=== PATIENT | female | born 1990 | race American Indian/Alaskan Native ===

== ENCOUNTER 2017-01-02 11:47 | Outpatient (CLI) | payer OTHER ==
[2017-01-02 12:48] LABS: Bilirubin,Urine NEG (Negative); Blood,Urine NEG (Negative); Ketones,Urine 80 mg/dL (Negative); Leukocyte Esterase,Urine MOD (Negative); Mucus,Urine 3+ /HPF; Nitrite,Urine NEG (Negative)
[2017-01-02 14:24] VITALS: BP 101/57
[2017-01-02] MEDS ORDERED: LACTATED RINGERS 1,000 ML IV ONE (14:30)
== END 2017-01-02 14:30 | disposition home or self-care (01) ==
LOC: TRG 11:47
PROVIDERS: ATTEND Obstetrics & Gynecology
DX: O47.03 False labor before 37 completed weeks of gestation, third trimester (principal); Z3A.36 36 weeks gestation of pregnancy
CPT/HCPCS: 59025; 81001; 96360; J7120

== ENCOUNTER 2017-02-01 13:03 | Inpatient (IN) | payer OTHER ==
[2017-02-01] MEDS ORDERED: XYLOCAINE 2% INFILTRATI ONE (13:08)
[2017-02-01] MEDS ORDERED: SUBLIMAZE IV PRN (13:08)
[2017-02-01] MEDS ORDERED: BRETHINE SUB-Q PRN (13:08)
[2017-02-01] MEDS ORDERED: MINERAL OIL PO PRN (13:08)
[2017-02-01] MEDS ORDERED: ZOFRAN IV PRN (13:08)
[2017-02-01] MEDS ORDERED: ePHEDrine SULFATE IV PRN ×2 (13:08→18:29)
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
[2017-02-01] MEDS ORDERED: PITOCin/NS 30 UNIT/500ML 30 UNITS/500 ML BAG IV SCH (14:00)
[2017-02-01] MEDS ORDERED: LACTATED RINGERS 1,000 ML IV SCH (14:00)
[2017-02-01] MEDS ORDERED: PITOCin/NS 20 UNIT/1000ML DRIP 20 UNITS/1,000 ML BAG IV SCH ×2 (14:00→23:55)
[2017-02-01 14:57] LABS: Hematocrit 34.2 % (30.3-42.9); Hemoglobin 11.3 gm/dl (10.1-14.3); Mean Corpuscular HGB Conc 33 % (30-34); Mean Corpuscular Hemoglobin 27 pg (28-32); Mean Corpuscular Volume 83 fl (79-97); Platelet Count 138 K/mm3 (140-440); Red Blood Count 4.13 M/mm3 (3.65-5.03); Red Cell Distribution Width 14.3 % (13.2-15.2); White Blood Count 7.8 K/mm3 (4.5-11.0)
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
[2017-02-01] MEDS ORDERED: ePHEDrine SULFATE ONE (18:02)
[2017-02-01] MEDS ORDERED: NARCAN 2 MG/2 ML IV PRN (18:29)
--- NOTE | 2017-02-01 18:29 | Anesthesia Consultation ---
Anesthesia Consult and Med Hx Date of service: 02/01/17 - Airway Anesthetic Teeth Evaluation: Good ROM Head & Neck: Adequate Mental/Hyoid Distance: Adequate Mallampati Class: Class II Intubation Access Assessment: Good - Pulmonary Exam CTA: Yes - Cardiac Exam Cardiac Exam: No Murmur - Pre-Operative Health Status ASA Pre-Surgery Classification: ASA2 Proposed Anesthetic Plan: Epidural - Pulmonary Hx Asthma: No COPD: No Hx Pneumonia: No - Cardiovascular System Hx Hypertension: Yes (PIH history) - Central Nervous System Hx Seizures: Yes Hx Psychiatric Problems: No - Endocrine Hx Renal Disease: No Hx End Stage Renal Disease: No Hx Hypothyroidism: No Hx Hyperthyroidism: No - Hematic Hx Anemia: No Hx Sickle Cell Disease: No - Other Systems Hx Alcohol Use: No
[2017-02-01] MEDS ORDERED: fentaNYL-BUPIV 2 MCG/ML-0.125% 200 MCG/100 ML BAG EPIDURAL SCH (19:00)
--- NOTE | 2017-02-01 20:59 | Procedure Note ---
OB Delivery Note - Delivery Date of Delivery: 02/01/17 Storage Center Manager: ILIANA VICENTE Estimated blood loss: 300cc - Vaginal Delivery presentation: vertex Delivery position: OA Intrapartum events: shoulder dystocia (30 seconds - resolved with jan and superpubic by Lisa Das RN), other(please specify) (IOL for BPP 4/10 with arrhythmia ) Delivery induction: oxytocin Delivery augmentation: rupture of membranes Delivery monitor: external FHT, internal uterine Route of delivery: Delivery placenta: spontaneous Delivery cord: 3 umbilical vessels Episiotomy: none Delivery laceration: none Anesthesia: epidural Delivery comments: male over intact perineum. head del DEYVI, 30 second shoulder dystocia resolved with jan and suprapubic pressure by RN. handed off for assessment by NICU/TOOL AND DIE MANAGER. (Left shoulder anterior; both arms moving well after delivery). Placenta del intact and complete, sent to pathology. Pit to IVF. no laceration to repair. EBL 300, infant's weight 8#4oz, apgars 8/9. Both mother and LDR stable. - Infant A at 1 minute: 8 at 5 minutes: 9 Gender: Male (8#4oz)
[2017-02-01] MEDS: KEPPRA PO SCH (22:01)
[2017-02-01] MEDS ORDERED: PHENERGAN PO PRN (23:55)
[2017-02-01] MEDS ORDERED: DERMOPLAST TP PRN (23:55)
[2017-02-01] MEDS ORDERED: TYLENOL PO PRN (23:55)
[2017-02-01] MEDS ORDERED: SODIUM CHLORIDE FLUSH SYRINGE 10 ML IV PRN (23:55)
[2017-02-01] MEDS ORDERED: DULCOLAX PR PRN (23:55)
[2017-02-01] MEDS ORDERED: LANSINOH TP PRN (23:55)
[2017-02-01] MEDS ORDERED: TUCKS PAD TP PRN (23:55)
[2017-02-01] MEDS ORDERED: BENADRYL PO PRN (23:55)
[2017-02-01] MEDS ORDERED: MILK OF MAGNESIA PO PRN (23:55)
[2017-02-01] MEDS ORDERED: NORCO 5/325 PO PRN (23:55)
[2017-02-02] MEDS: MOTRIN PO SCH ×4 (00:18→17:14)
--- NOTE | 2017-02-02 09:52 | Progress Note ---
Subjective Date of service: 02/02/17 Principal diagnosis: IUP @ 39+1, nonreassuring fht, BPP 07/02 Interval history: Ms. Plaza is S/P with epidural analgesia. She has a PMH of hypertension , asthma. seizures and migraine headache. She awoke last PM with a left sided headache. The headache has lessened in intensity since then and does not seem to be positional. Anesthesia will see patient in AM and reevaluate. Objective - Constitutional Vitals: Vital Signs - 12hr 02/01/17 02/01/17 02/01/17 21:54 21:57 21:59 Temperature Pulse Rate 66 73 63 Respiratory Rate Blood Pressure 106/58 Blood Pressure [Left] O2 Sat by Pulse 99 99 Oximetry 02/01/17 02/01/17 02/01/17 22:04 22:09 22:12 Temperature Pulse Rate 70 76 73 Respiratory Rate Blood Pressure 112/53 Blood Pressure [Left] O2 Sat by Pulse 99 98 Oximetry 02/01/17 02/02/17 22:55 04:15 Temperature 97.9 F 98.4 F Pulse Rate 58 L 64 Respiratory 20 20 Rate Blood Pressure Blood Pressure 105/56 104/71 [Left] O2 Sat by Pulse Oximetry - Labs CBC & Chem 7: 02/01/17 14:45 Labs: Abnormal lab results 02/01/17 Range/Units 14:45 MCH 27 L (28-32) pg Plt Count 138 L (140-440) K/mm3
[2017-02-02] MEDS: PRENATAL VITAMIN PO SCH (10:10)
[2017-02-02] MEDS: KEPPRA PO SCH ×3 (10:10→22:01)
[2017-02-02] MEDS: COLACE PO SCH ×2 (10:10→21:58)
[2017-02-02 10:56] LABS: Hematocrit 33.4 % (30.3-42.9); Hemoglobin 11.1 gm/dl (10.1-14.3)
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
--- NOTE | 2017-02-02 11:20 | Discharge Summary ---
Providers - Providers Date of Admission: 02/01/17 13:10 Date of discharge: 02/02/17 (desires d/c home) Attending physician: MAAME CASH Primary care physician: MAAME CASH Hospitalization Reason for admission: induction of labor (bpp 07/02, nonreassuring status) Delivery: Episiotomy: none Laceration: none Other procedures: none complications: none Discharge diagnosis: IUP at term delivered baby: male Hospital course: uncomplicated vag delivery Condition at discharge: Good Disposition: DC-01 TO HOME OR SELFCARE - Discharge Diagnoses (1) Epilepsy Status: Acute Qualifiers: Epilepsy type: E Partial seizure type: P Intractability: I Status epilepticus: S (2) HTN (hypertension) Status: Acute Qualifiers: Hypertension type: essential hypertension Qualified Code(s): I10 - Essential (primary) hypertension (3) Asthma Status: Acute Qualifiers: Asthma severity: A Asthma persistence: A Asthma complication type: uncomplicated (4) Spontaneous vaginal delivery Status: Acute Plan - Discharge Medications Prescriptions: Ibuprofen [Motrin 800 MG tab] 800 mg PO Q8HR PRN #30 tablet PRN Reason: Pain Lidocain2.5%/Prilocai2.5% [Emla] 5 gm TP ONCE PRN #1 tube PRN Reason: Pain - Provider Discharge Summary Activity: routine, no sex for 6 weeks, no heavy lifting 4 weeks, no strenuous exercise Diet: routine Instructions: routine Additional instructions: [] Smoking cessation referral if applicable(refer to patient education folder for contact #) [] Refer to [facility] Booklet Call your doctor immediately for: * Fever > 100.5 * Heavy vaginal bleeding ( >1 pad per hour) * Severe persistent headache * Shortness of breath * Reddened, hot, painful area to leg or breast * Drainage or odor from incision. * Keep incision clean and dry at all times and follow doctor's instructions regarding bathing/showering - Follow up plan Follow up: MAAME CASH MD [Primary Care Provider] - 7 Days (Congratulation!! Please call [phone] to schedule your son's circumcision in 1 week and your visit in 4 weeks. Bring EMLA cream to your son's appointment and await instruction. Call for any questions or concerns. )
[2017-02-03] MEDS: MOTRIN PO SCH ×3 (00:16→12:01)
[2017-02-03] MEDS ORDERED: FIORICET PO PRN (04:25)
--- NOTE | 2017-02-03 04:27 | Event Note ---
Date: 02/03/17 per patient, she has a hx of migraine headaches. She is now c/o feeling "like a migraine is about to start". Crystal ordered.
[2017-02-03] MEDS ORDERED: BOOSTRIX IM ONE (06:00)
--- NOTE | 2017-02-03 06:43 | Event Note ---
Date: 02/03/17 patient states migraine has been relieved by fioricet. She request rx for discharge. no s/s seizure activity. All questions addressed, patient will call for appointment tomorrow. d/c home today as planned.
[2017-02-03 09:55] VITALS: BP 125/69
[2017-02-03] MEDS: COLACE PO SCH (09:58)
[2017-02-03] MEDS: PRENATAL VITAMIN PO SCH (09:58)
[2017-02-03] MEDS: KEPPRA PO SCH (09:59)
== END 2017-02-03 15:35 | disposition home or self-care (01) | DRG 775 ==
LOC: TRG 13:03 → LD 13:10 → TRG 13:10 → OB 22:42
PROVIDERS: ADMIT Obstetrics & Gynecology; ATTEND Obstetrics & Gynecology
PROC: 10E0XZZ Delivery of Products of Conception, External Approach (ICD-10-PCS; principal; 2017-02-01)
PROC: 3E0R3BZ Introduction of Anesthetic Agent into Spinal Canal, Percutaneous Approach (ICD-10-PCS; 2017-02-01)
PROC: 00HU33Z Insertion of Infusion Device into Spinal Canal, Percutaneous Approach (ICD-10-PCS; 2017-02-01)
PROC: 10907ZC Drainage of Amniotic Fluid, Therapeutic from Products of Conception, Via Natural or Artificial Opening (ICD-10-PCS; 2017-02-01)
PROC: 3E0P3VZ Introduction of Hormone into Female Reproductive, Percutaneous Approach (ICD-10-PCS; 2017-02-01)
DX: O16.4 Unspecified maternal hypertension, complicating childbirth (principal); O99.52 Diseases of the respiratory system complicating childbirth; J45.909 Unspecified asthma, uncomplicated; O66.0 Obstructed labor due to shoulder dystocia; O99.353 Diseases of the nervous system complicating pregnancy, third trimester; G40.909 Epilepsy, unspecified, not intractable, without status epilepticus; O76 Abnormality in fetal heart rate and rhythm complicating labor and delivery; G43.909 Migraine, unspecified, not intractable, without status migrainosus; Z37.0 Single live birth; Z3A.39 39 weeks gestation of pregnancy
CPT/HCPCS: 36415; 85014; 85018; 85027; 86592; 86850; 86900; 86901; 88307; 90471; 90715; J2590; J7120

== ENCOUNTER 2019-05-22 19:51 | Emergency (ER) | payer OTHER ==
[2019-05-22 20:09] VITALS: BP 100/61
[2019-05-22] MEDS ORDERED: levETIRAcetam 1000 MG/NS 0.75% 1,000 MG/100 ML BAG IV ONE (20:20)
[2019-05-22 20:55] LABS: Hematocrit 35.7 % (30.3-42.9); Mean Corpuscular HGB Conc 34 % (30-34); Mean Corpuscular Volume 82 fl (79-97); Platelet Count 222 K/mm3 (140-440); Red Blood Count 4.34 M/mm3 (3.65-5.03); Red Cell Distribution Width 13.5 % (13.2-15.2)
[2019-05-22 21:01] LABS: BUN/Creatinine Ratio 13; Blood Urea Nitrogen 9 mg/dL (7-17); Calcium 8.7 mg/dL (8.4-10.2); Hemolysis Index 6
--- NOTE | 2019-05-22 21:32 | Emergency Department Report ---
HPI - General Chief Complaint: Seizure Time Seen by Provider: 05/22/19 20:11 - HPI HPI: 28-year-old -[place] female presents to the emergency department via EMS after the patient had a witnessed seizure at [facility] just prior to presentation. It was witnessed by the and lasted for about 10 to 15 seconds. The patient does have a history of seizures or epilepsy but has not been on her Keppra for the past month. She previously saw Dr. Wesley Poe for neurology but he no longer apparently takes her insurance and her medication ran out. Currently the patient has no complaints and is awake and alert. ED Past Medical Hx - Past Medical History Previous Medical History?: Yes Hx Hypertension: (PIH history) Hx Congestive Heart Failure: No Hx Diabetes: No Hx Deep Vein Thrombosis: No Hx Renal Disease: No Hx Sickle Cell Disease: No Hx Seizures: Yes Hx Asthma: No Hx COPD: No Hx HIV: No - Surgical History Past Surgical History?: Yes - Social History Smoking Status: Never Smoker - Medications Home Medications: Home Medications Medication Instructions Recorded Confirmed Last Taken Type Ibuprofen [Motrin 800 MG tab] 800 mg PO Q8HR PRN #30 tablet 02/01/17 Unknown Rx Lidocain2.5%/Prilocai2.5% [Emla] 5 gm TP ONCE PRN #1 tube 02/01/17 Unknown Rx Vitamins 1 tab PO QDAY 02/01/17 02/01/17 1 Month Ago History ~01/01/17 1 levETIRAcetam [Levetiracetam] 1,000 mg PO QDAY 02/01/17 02/01/17 02/01/17 10:00 History Butalb/Acetamin/Caff 50-325-40 2 each PO Q4H PRN #30 tablet 02/03/17 Unknown Rx [Fioricet] levETIRAcetam [Keppra TAB] 1,000 mg PO BID #60 tab 05/22/19 Unknown Rx ED Review of Systems ROS: Stated complaint: SEIZURES Other details as noted in HPI Comment: All other systems reviewed and negative Constitutional: denies: chills, fever Eyes: denies: eye pain, vision change Respiratory: denies: cough, shortness of breath Cardiovascular: denies: chest pain, palpitations Gastrointestinal: denies: abdominal pain, vomiting Musculoskeletal: denies: back pain, arthralgia Neurological: other (Seizure). denies: headache Physical Exam - Physical Exam Vital Signs: Vital Signs 05/22/19 20:08 Temperature 98.3 F Pulse Rate 99 H Respiratory 18 Rate Blood Pressure 100/61 [Right] O2 Sat by Pulse 99 Oximetry Physical Exam: GENERAL: The patient is well-developed well-nourished. HENT: Normocephalic. Atraumatic. Patient has moist mucous membranes. EYES: Extraocular motions are intact. Pupils equal reactive to light bilaterally. No nystagmus. NECK: Supple. Trachea is midline. CHEST/LUNGS: Clear to auscultation. There is no respiratory distress noted. HEART/CARDIOVASCULAR: Regular. There is no tachycardia. ABDOMEN: Abdomen is soft, nontender. Patient has normal bowel sounds. There is no abdominal distention. SKIN: Skin is warm and dry. NEURO: The patient is awake, alert, and oriented. The patient is cooperative. The patient has no focal neurologic deficits. Normal speech. Cranial nerves II through XII grossly intact. MUSCULOSKELETAL: There is no tenderness or deformity. There is no evidence of acute injury. ED Course Vital Signs 05/22/19 20:08 Temperature 98.3 F Pulse Rate 99 H Respiratory 18 Rate Blood Pressure 100/61 [Right] O2 Sat by Pulse 99 Oximetry ED Medical Decision Making - Lab Data Result diagrams: 05/22/19 20:30 05/22/19 20:30 - Medical Decision Making This patient presents to the emergency department after having a seizure just prior to presentation. She has been without her seizure medication for the past month. Since being in the emergency department she has been awake, alert, oriented without any acute distress. There is no focal, motor or sensory deficits and her cranial nerves are intact. Patient's labs were unremarkable including CBC, metabolic panel and she was negative for . She was loaded with a gram of Keppra. She was reevaluated multiple times and there has been no further seizure-like activity. She will be discharged home with a refill of her Keppra. She has been given multiple neurology referrals. She understands she is unable to drive for the next 6 months. She will return to the ER with any worsening of her symptoms or any acute distress. - Differential Diagnosis Epilepsy, hypoglycemia, anemia, medication noncompliance Critical Care Time: No Critical care attestation.: If time is entered above; I have spent that time in minutes in the direct care of this critically ill patient, excluding procedure time. ED Disposition Clinical Impression: Seizure, Noncompliance with medication regimen Disposition: TO HOME OR SELFCARE Is pt being admited?: No Condition: Stable Instructions: Epilepsy (ED), Recurrent Seizures Adult (ED) Additional Instructions: Please follow-up with a primary care physician and neurologist in the next few days. Take the seizure medications as previously prescribed. Return to the emergency department with any further seizure-like activity or with any acute distress. Given this recent seizure, you are not allowed to drive or operate any heavy machinery for at least 6 months, or until cleared by a neurologist. Prescriptions: levETIRAcetam [Keppra TAB] 1,000 mg PO BID #60 tab Referrals: JUSTYNA CHINO MD [Referring] - 2-3 Days BRO HESS MD [Staff Physician] - 2-3 Days Time of Disposition: 21:31
== END 2019-05-22 21:50 | disposition home or self-care (01) ==
LOC: ED 19:51
DX: R56.9 Unspecified convulsions (principal); Z91.14 Patient's other noncompliance with medication regimen; Z79.1 Long term (current) use of non-steroidal anti-inflammatories (NSAID); Z79.899 Other long term (current) drug therapy
CPT/HCPCS: 36415; 80048; 84703; 85025; 96374; 99284; J1953